=== PATIENT | female | born 1960 | race Two or more races ===

== ENCOUNTER 2016-11-16 13:14 | Inpatient (IN) | payer BC, OTHER ==
[2016-11-16 13:19] VITALS: BMI 29.2
[2016-11-16] MEDS ORDERED: morphine CARPU-JECT 2 MG/1 ML DISP.SYRIN IVPUSH ONE (14:39)
[2016-11-16] MEDS ORDERED: PANTOPRAZOLE SODIUM 40 MG in SODIUM CHLORIDE 100 ML IVPB ONE (14:39)
[2016-11-16 14:52] LABS: URINE APPEARANCE CLEAR; URINE BILIRUBIN NEGATIVE (NEGATIVE); URINE COLOR YELLOW; URINE GLUCOSE (UA) NEGATIVE (NEGATIVE); URINE KETONE NEGATIVE (NEGATIVE); URINE LEUK ESTERASE NEGATIVE (NEGATIVE); URINE NITRITE NEGATIVE (NEGATIVE); URINE PROTEIN NEGATIVE (NEGATIVE); URINE UROBILINOGEN 2.0 E.U/dl E.U./dl (0.2-1.0)
[2016-11-16 14:59] LABS: BASOPHIL 0.5 % (0-2.0); EOSINOPHIL 0.2 % (0-4.5); MCH 32.6 pg (25.7-33.7); MCHC 33.6 g/dl (32.0-36.0); MEAN PLT VOLUME 8.8 fl (7.5-11.1); NEUTROPHILS 84.8 % (42.8-82.8); PLATELET COUNT 161 K/MM3 (134-434); RDW 13.8 % (11.6-15.6); WHITE BLOOD COUNT 6.9 K/mm3 (4.0-10.0)
[2016-11-16 15:03] LABS: INR 1.9 (0.82-1.09); PROTHROMBIN TIME (PATIENT) 21.2 SEC (9.98-11.88)
[2016-11-16 15:03] LABS: URINE BLOOD 1+ (NEGATIVE)
[2016-11-16 15:08] LABS: URINE RBC 3 /hpf (0-3); URINE WBC 1 /hpf (3-5)
[2016-11-16] MEDS ORDERED: PANTOPRAZOLE SODIUM 100 ML IVPB ONE (15:09)
[2016-11-16] MEDS ORDERED: morphine CARPU-JECT 2 MG/1 ML DISP.SYRIN ONE (15:09)
[2016-11-16 15:12] LABS: ALBUMIN 3.7 g/dl (3.4-5.0); ANION GAP 7 (8-16); BILIRUBIN,TOTAL 1.2 mg/dL (0.2-1.0); CALCIUM 8.6 mg/dL (8.5-10.1); CO2 26 mmol/L (21-32); CREATININE 0.8 mg/dL (0.55-1.02); GLUCOSE,RANDOM 102 mg/dL (74-106); SGOT/AST 167 U/L (15-37); SGPT/ALT 90 U/L (12-78); TOT PROT 6.9 g/dl (6.4-8.2)
[2016-11-16 15:13] LABS: ALK PHOS 136 U/L (45-117)
--- NOTE | 2016-11-16 16:06 | PDOC ---
History of Present Illness - General Chief Complaint: Pain, Acute Stated Complaint: ABD PAIN/ VOMITTING Time Seen by Provider: 11/16/16 13:42 History Source: Patient Exam Limitations: No Limitations - History of Present Illness Travel History: No Initial Comments: 11/16/16 15:06 56-year-old female presents to the emergency with complaints of upper abdominal cramping that began this morning associated 1 episode of vomiting. Patient denies fever, chills, chest pain, shortness of breath but does state takes Coumadin for phlebitis patient denies any recent illness, recent travel, recent sick contacts. Patient does state history of constipation with her last bowel movement being 3 days ago but denies abdominal pain to this extent with constipation. Patient denies history of gallstones but the states similar pain and workup approximately 3 years ago. 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 Timing/Duration: reports: constant Quality: reports: moderate, cramping, sharpness Abdominal Pain Onset Location: reports: epigastric Pain Radiation: reports: no radiation Activities at Onset: reports: none Aggravating Factors: improves with: None Alleviating Factors: improves with: None Past History - Past Medical History Allergies/Adverse Reactions: Allergies Allergy/AdvReac Type Severity Reaction Status Date / Time Penicillins Allergy Mild RASH, Verified 11/16/16 13:19 MOUTH SWELLING sulfamethoxazole Allergy Verified 11/16/16 13:19 [From Bactrim] trimethoprim [From Bactrim] Allergy Verified 11/16/16 13:19 Home Medications: Ambulatory Orders Levothyroxine [Synthroid -] 100 mcg PO DAILY #0 02/09/14 Warfarin Na [Coumadin -] 4 mg PO MOTUWETHFR 04/25/16 Atenolol [Tenormin -] 25 mg PO HS 11/16/16 Docusate Sodium [Colace -] 100 mg PO DAILY 11/16/16 Folic Acid - 2 mg PO DAILY 11/16/16 Methotrexate Sodium [Methotrexate] 17.5 mg PO WEEKLY 11/16/16 Omeprazole 40 mg PO DAILY 11/16/16 Warfarin Na [Coumadin] 5 mg PO SUSA 11/16/16 Oxycodone HCl/Acetaminophen [Percocet 5-325 mg Tablet] 1 tab PO Q4H PRN #20 tablet MDD 6 11/19/16 Anemia: No Asthma: No Cancer: No Cardiac Disorders: No CVA: No COPD: No CHF: No DVT: Yes (RECURRING DVT LOWER EXTREMITY) Dementia: No Diabetes: No GI Disorders: Yes (CONSTIPATION) Disorders: No HTN: Yes Hypercholesterolemia: No Liver Disease: No Suicide Attempt (Hx): No Seizures: No Thyroid Disease: Yes (HYPOTHYROID) Other medical history: Lupus, Arthritis - Surgical History Abdominal Surgery: No Appendectomy: No Cardiac Surgery: No Cholecystectomy: No Lung Surgery: No Neurologic Surgery: No Orthopedic Surgery: No - Immunization History Immunization Up to Date: No - Psycho/Social/Smoking Cessation Hx Anxiety: Yes Suicidal Ideation: No Smoking History: Never smoked Have you smoked in the past 12 months: No Number of Cigarettes Smoked Daily: 0 If you are a former smoker, when did you quit?: 15YRS AGO Cigars Per Day: 0 Information on smoking cessation initiated: No Hx Alcohol Use: No Drug/Substance Use Hx: No Substance Use Type: None Hx Substance Use Treatment: No Patient Lives Alone: No Lives with/in: spouse/SO Review of Systems - Review of Systems Able to Perform ROS?: Yes Constitutional: No: Symptoms Reported HEENTM: No: Symptoms Reported Respiratory: No: Symptoms reported Cardiac (ROS): No: Symptoms Reported ABD/GI: Yes: Constipated (3 days), Nausea, Vomiting, Abdominal cramping ( epigastric) : No: Symptoms Reported Musculoskeletal: No: Symptoms Reported Integumentary: No: Symptoms Reported Neurological: No: Symptoms reported Endocrine: No: Symptoms Reported Hematologic/Lymphatic: No: Symptoms Reported *Physical Exam - Vital Signs Last Vital Signs Temp Pulse Resp BP Pulse Ox 97.9 F 58 L 18 139/82 98 11/16/16 13:18 11/16/16 13:18 11/16/16 14:27 11/16/16 13:18 11/16/16 14:27 - Physical Exam General Appearance: Yes: Nourished, Appropriately Dressed. No: Apparent Distress HEENT: positive: EOMI, ABHILASH. negative: Pale Conjunctivae Neck: positive: Supple Respiratory/Chest: positive: Lungs Clear, Normal Breath Sounds. negative: Respiratory Distress, Accessory Muscle Use Cardiovascular: positive: Regular Rhythm, Regular Rate. negative: Murmur Gastrointestinal/Abdominal: positive: Normal Bowel Sounds, Soft, Guarding ( epigastric), Tenderness (epigastric, No RUQ tenderness). negative: Distended, Rebound Musculoskeletal: negative: CVA Tenderness Extremity: positive: Normal Capillary Refill. negative: Pedal Edema Integumentary: positive: Normal Color, Warm, Moist Neurologic: positive: Motor Strength 5/5 (ambulatory) Heart Score/ECG Review - ECG Intrepretation Rhythm: Regular Rhythm (rate 54 sinus bradycardia) ED Treatment Course - LABORATORY CBC & Chemistry Diagram: 11/19/16 06:30 11/19/16 06:30 - ADDITIONAL ORDERS Additional order review: Laboratory Results 11/16/16 11/16/16 11/16/16 14:44 14:28 14:28 INR 1.90 H Sodium 142 Potassium 3.9 Chloride 109 H Carbon Dioxide 26 Anion Gap 7 L BUN 12 Creatinine 0.8 Creat Clearance w eGFR > 60 Random Glucose 102 Calcium 8.6 Total Bilirubin 1.2 H D AST 167 H D ALT 90 H D Alkaline Phosphatase 136 H D Total Protein 6.9 Albumin 3.7 Lipase 86318 H Urine Color Yellow Urine Appearance Clear Urine pH 6.0 Ur Specific [place] 1.015 Urine Protein Negative Urine Glucose (UA) Negative Urine Ketones Negative Urine Blood 1+ H Urine Nitrite Negative Urine Bilirubin Negative Urine Urobilinogen 2.0 e.u/dl H Ur Leukocyte Esterase Negative Urine RBC 3 Urine WBC 1 Ur Epithelial Cells Rare 11/16/16 14:28 RBC 4.34 MCV 97.0 H MCHC 33.6 RDW 13.8 MPV 8.8 Neutrophils % 84.8 H Lymphocytes % 9.7 Monocytes % 4.8 Eosinophils % 0.2 Basophils % 0.5 - RADIOLOGY Radiology Studies Ordered: Category Date Time Status ABDOMEN & PELVIS CT WITH CONTR [CT] Stat CT Scan 11/16/16 15:57 Ordered - Medications Given in the ED: ED Medications Discontinued Medications Generic Name Dose Route Start Last Admin Trade Name Freq PRN Reason Stop Dose Admin Pantoprazole Sodium 40 mg/ 100 mls @ 200 mls/hr 11/16/16 14:39 11/16/16 15:20 Sodium Chloride IVPB 11/16/16 15:08 200 mls/hr ONCE ONE Administration Morphine Sulfate 2 mg 11/16/16 14:39 11/16/16 15:15 Morphine Injection - IVPUSH 11/16/16 14:40 2 mg ONCE ONE Administration Medical Decision Making - Critical Care Time Total Critical Care Time (minutes): 40 Critical Care Statement: The care of this patient involved high complexity decision making to prevent further life threatening deterioration of the patient 's condition and/or to evalute & treat vital organ system(s) failure or risk of failure. - Medical Decision Making 11/16/16 15:25 Patient with abdominal pain associated 1 episode of vomiting secondary to the pain. Patient states also constipated for the past 3 days but states has been constipated before normal without abdominal pain. Patient states it's had similar pain like this before and received a hydroscan with negative findings but did get admitted for a few days. [place]' back in 2013. Patient does have epigastric tenderness on exam without right upper quadrant tenderness. Patient concerning for gastritis versus cholecystitis versus pancreatitis. CBC, comp, urine, lipase, EKG, Pepcid, Zofran and IV fluids ordered 11/16/16 16:39 Laboratory Tests 11/16/16 11/16/16 11/16/16 14:28 14:28 14:28 WBC 6.9 D Hgb 14.2 Hct 42.2 Neutrophils % 84.8 H INR Sodium 142 Potassium 3.9 Chloride 109 H Carbon Dioxide 26 Anion Gap 7 L BUN 12 Creatinine 0.8 Creat Clearance w eGFR > 60 Random Glucose 102 Calcium 8.6 Total Bilirubin 1.2 H D AST 167 H D ALT 90 H D Alkaline Phosphatase 136 H D Lipase 99851 H Urine Ketones Negative Urine Blood 1+ H Urine Nitrite Negative Urine Bilirubin Negative Ur Leukocyte Esterase Negative Urine WBC 1 11/16/16 14:44 WBC Hgb Hct Neutrophils % INR 1.90 H Sodium Potassium Chloride Carbon Dioxide Anion Gap BUN Creatinine Creat Clearance w eGFR Random Glucose Calcium Total Bilirubin AST ALT Alkaline Phosphatase Lipase Urine Ketones Urine Blood Urine Nitrite Urine Bilirubin Ur Leukocyte Esterase Urine WBC Total amylase ordered. Second bag of IV fluid ordered. CT of the abdomen with contrast ordered. Patient presently comfortable. the patient also subtherapeutic on her Coumadin *DC/Admit/Observation/Transfer Diagnosis at time of Disposition: Pancreatitis, Cholelithiases - Discharge Dispostion Condition at time of disposition: Stable - Prescriptions
[2016-11-16] MEDS ORDERED: SODIUM CHLORIDE 1,000 ML IV STA ×2 (16:38)
--- NOTE | 2016-11-16 17:21 | PDOC ---
*Physical Exam - Vital Signs Last Vital Signs Temp Pulse Resp BP Pulse Ox 97.9 F 58 L 18 139/82 98 11/16/16 13:18 11/16/16 13:18 11/16/16 14:27 11/16/16 13:18 11/16/16 14:27 ED Treatment Course - LABORATORY CBC & Chemistry Diagram: 11/19/16 06:30 11/19/16 06:30 - ADDITIONAL ORDERS Additional order review: Laboratory Results 11/16/16 11/16/16 11/16/16 14:44 14:28 14:28 INR 1.90 H Sodium 142 Potassium 3.9 Chloride 109 H Carbon Dioxide 26 Anion Gap 7 L BUN 12 Creatinine 0.8 Creat Clearance w eGFR > 60 Random Glucose 102 Calcium 8.6 Total Bilirubin 1.2 H D AST 167 H D ALT 90 H D Alkaline Phosphatase 136 H D Total Protein 6.9 Albumin 3.7 Lipase 91750 H Urine Color Yellow Urine Appearance Clear Urine pH 6.0 Ur Specific [place] 1.015 Urine Protein Negative Urine Glucose (UA) Negative Urine Ketones Negative Urine Blood 1+ H Urine Nitrite Negative Urine Bilirubin Negative Urine Urobilinogen 2.0 e.u/dl H Ur Leukocyte Esterase Negative Urine RBC 3 Urine WBC 1 Ur Epithelial Cells Rare 11/16/16 14:28 RBC 4.34 MCV 97.0 H MCHC 33.6 RDW 13.8 MPV 8.8 Neutrophils % 84.8 H Lymphocytes % 9.7 Monocytes % 4.8 Eosinophils % 0.2 Basophils % 0.5 - RADIOLOGY Radiology Studies Ordered: Category Date Time Status CHEST X-RAY PORTABLE* [RAD] Stat Radiology 11/16/16 14:28 Completed - Medications Given in the ED: ED Medications Discontinued Medications Generic Name Dose Route Start Last Admin Trade Name Freq PRN Reason Stop Dose Admin Pantoprazole Sodium 40 mg/ 100 mls @ 200 mls/hr 11/16/16 14:39 11/16/16 15:20 Sodium Chloride IVPB 11/16/16 15:08 200 mls/hr ONCE ONE Administration Morphine Sulfate 2 mg 11/16/16 14:39 11/16/16 15:15 Morphine Injection - IVPUSH 11/16/16 14:40 2 mg ONCE ONE Administration Medical Decision Making - Medical Decision Making 11/16/16 17:17 56 yo F presenting with abdominal pain Labs demonstrate pancreatitis Hydrate with LR Admit CT vs US Close monitoring Pt seen by Midlevel Provider under my direct supervision Ancillary studies reviewed I agree with plan as outlined by Midlevel Provider 11/16/16 17:20 *DC/Admit/Observation/Transfer Diagnosis at time of Disposition: Pancreatitis, Cholelithiases - Discharge Dispostion Condition at time of disposition: Stable - Prescriptions
[2016-11-16 18:26] LABS: AMYLASE 3659 U/L (25-115)
--- NOTE | 2016-11-16 20:27 | PDOC ---
*Physical Exam - Vital Signs Last Vital Signs Temp Pulse Resp BP Pulse Ox 97.9 F 63 16 131/85 98 11/16/16 13:18 11/16/16 19:08 11/16/16 19:08 11/16/16 19:08 11/16/16 19:08 ED Treatment Course - LABORATORY CBC & Chemistry Diagram: 11/16/16 14:28 11/16/16 14:28 - ADDITIONAL ORDERS Additional order review: Laboratory Results 11/16/16 11/16/16 11/16/16 14:44 14:28 14:28 INR 1.90 H Sodium 142 Potassium 3.9 Chloride 109 H Carbon Dioxide 26 Anion Gap 7 L BUN 12 Creatinine 0.8 Creat Clearance w eGFR > 60 Random Glucose 102 Calcium 8.6 Total Bilirubin 1.2 H D AST 167 H D ALT 90 H D Alkaline Phosphatase 136 H D Total Protein 6.9 Albumin 3.7 Total Amylase 3659 H Lipase 87524 H Urine Color Yellow Urine Appearance Clear Urine pH 6.0 Ur Specific [place] 1.015 Urine Protein Negative Urine Glucose (UA) Negative Urine Ketones Negative Urine Blood 1+ H Urine Nitrite Negative Urine Bilirubin Negative Urine Urobilinogen 2.0 e.u/dl H Ur Leukocyte Esterase Negative Urine RBC 3 Urine WBC 1 Ur Epithelial Cells Rare 11/16/16 14:28 RBC 4.34 MCV 97.0 H MCHC 33.6 RDW 13.8 MPV 8.8 Neutrophils % 84.8 H Lymphocytes % 9.7 Monocytes % 4.8 Eosinophils % 0.2 Basophils % 0.5 - Medications Given in the ED: ED Medications Discontinued Medications Generic Name Dose Route Start Last Admin Trade Name Arthur PRN Reason Stop Dose Admin Pantoprazole Sodium 40 mg/ 100 mls @ 200 mls/hr 11/16/16 14:39 11/16/16 15:20 Sodium Chloride IVPB 11/16/16 15:08 200 mls/hr ONCE ONE Administration Sodium Chloride 1,000 mls @ 1,000 mls/hr 11/16/16 16:38 11/16/16 16:46 Normal Saline - IV 11/16/16 17:37 1,000 mls/hr ASDIR STA Administration Sodium Chloride 1,000 mls @ 1,000 mls/hr 11/16/16 16:38 11/16/16 18:52 Normal Saline - IV 11/16/16 17:37 1,000 mls/hr ASDIR STA Administration Morphine Sulfate 2 mg 11/16/16 14:39 11/16/16 15:15 Morphine Injection - IVPUSH 11/16/16 14:40 2 mg ONCE ONE Administration *DC/Admit/Observation/Transfer Diagnosis at time of Disposition: Pancreatitis Qualifiers: Chronicity: acute Pancreatitis type: unspecified pancreatitis type Qualified Code(s): K85.9 - Acute pancreatitis, unspecified Cholelithiasis Qualifiers: Cholelithiasis location: gallbladder Cholecystitis presence: without cholecystitis Biliary obstruction: without biliary obstruction Qualified Code(s) : K80.20 - Calculus of gallbladder without cholecystitis without obstruction - Discharge Dispostion Condition at time of disposition: Guarded Admit: Yes
--- NOTE | 2016-11-16 21:33 | PN ---
<DouglasCorby - Last Filed: 11/16/16 21:32> Teaching Attending Note ATTENDING PHYSICIAN STATEMENT I saw and evaluated the patient. I reviewed the resident's note and discussed the case with the resident. I agree with the resident's findings and plan as documented. SUBJECTIVE: OBJECTIVE: ASSESSMENT AND PLAN: <Hilton Rosales - Last Filed: 11/17/16 00:15> Teaching Attending Note Name of Resident: Alessandra Hdez ATTENDING PHYSICIAN STATEMENT I saw and evaluated the patient. I reviewed the resident's note and discussed the case with the resident. I agree with the resident's findings and plan as documented. 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 Presents to the ED with diffuse abdominal pain for 2 days, which worsened 1 day ago, and one episode of emesis. She notes that her abdominal pain is more severe in the right upper quadrant and radiates to the back. She denies any exacerbation of her pain with food. She notes that she was diagnosed with gallstones and pancreatitis a couple of years ago but no surgical intervention performed at that time. She denies any trauma to her abdomen, denies any fevers, cough, dysuria or diarrhea. OBJECTIVE: Vitals: Afebrile Heart rate: 63 bpm BP: 131/85 GENERAL: Awake, alert, and fully oriented, in no acute distress HEENT: Atraumatic. Moist mucosa. No JVD LUNGS: Clear to auscultation bilaterally. HEART: Regular rate and rhythm, normal S1 and S2, no murmurs, rubs or gallops, peripheral pulses normal and equal bilaterally. ABDOMEN: +Tender right upper quadrant and epigastric tenderness. Soft, normoactive bowel sounds. No masses. EXTREMITIES: No edema. No clubbing or cyanosis. NEUROLOGICAL: Normal speech. SKIN: Warm, Dry, normal turgor, no rashes or lesions noted. CBCD WBC 6.9 K/mm3 (4.0-10.0) D 11/16/16 14:28 RBC 4.34 M/mm3 (3.60-5.2) 11/16/16 14:28 Hgb 14.2 GM/dL (10.7-15.3) 11/16/16 14:28 Hct 42.2 % (32.4-45.2) 11/16/16 14:28 MCV 97.0 fl (80-96) H 11/16/16 14:28 MCHC 33.6 g/dl (32.0-36.0) 11/16/16 14:28 RDW 13.8 % (11.6-15.6) 11/16/16 14:28 Plt Count 161 K/MM3 (134-434) 11/16/16 14:28 MPV 8.8 fl (7.5-11.1) 11/16/16 14:28 CMP Sodium 142 mmol/L (136-145) 11/16/16 14:28 Potassium 3.9 mmol/L (3.5-5.1) 11/16/16 14:28 Chloride 109 mmol/L (98-107) H 11/16/16 14:28 Carbon Dioxide 26 mmol/L (21-32) 11/16/16 14:28 Anion Gap 7 (8-16) L 11/16/16 14:28 BUN 12 mg/dL (7-18) 11/16/16 14:28 Creatinine 0.8 mg/dL (0.55-1.02) 11/16/16 14:28 Creat Clearance w eGFR > 60 (>60) 11/16/16 14:28 Calcium 8.6 mg/dL (8.5-10.1) 11/16/16 14:28 Total Bilirubin 1.2 mg/dL (0.2-1.0) H D 11/16/16 14:28 AST 167 U/L (15-37) H D 11/16/16 14:28 ALT 90 U/L (12-78) H D 11/16/16 14:28 Alkaline Phosphatase 136 U/L (45-117) H D 11/16/16 14:28 Total Protein 6.9 g/dl (6.4-8.2) 11/16/16 14:28 Albumin 3.7 g/dl (3.4-5.0) 11/16/16 14:28 CT abdomen and pelvis with contrast Impression: 5 mm right lower lobe nodule. 2 mm left lower lobe nodule. No pleural effusions. * Moderate peripancreatic edema, compatible with pancreatitis. No evidence for abscess or drainable fluid collections at this time. Cholelithiasis. The liver, adrenal glands, and spleen are unremarkable. Bilateral renal cortical scarring. No renal or urinary calculi. No AAA. No evidence of diverticulitis, appendicitis, small bowel obstruction, free fluid , or free air. 1.6 cm right ovarian cyst. ASSESSMENT AND PLAN: Acute pancreatitis, likely secondary to gallstones as evidence by cholestatic pattern of LFTs, should rule out ethanol abuse and hypertriglyceridemia. -NPO -IVF hydration -Liver ultrasound -Pain control with Dilaudid 0.5 mg Q4 hours if pain -Surgery for possible cholecystectomy in the AM -GI evaluation for MRCP in the AM DVT prophylaxis, patient on coumadin for prior history of DVTs, can continue same home dose of coumadin 2. Rheumatoid arthritis, controlled - Continue methotrexate 3. Hypothyroidism - Continue levothyroxine Documentation prepared by Hilton Rosales, acting as medical receptionist medical assistant for Corby Cole MD.
--- NOTE | 2016-11-16 22:23 | HP ---
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 She states that 3 days ago she started having mild-moderate, diffuse abdominal pain that occurred intermittently and resolved spontaneously. Last night she had a more severe episode but it too resolved and she slept through the night until this morning, she awoke with 10/10 sharp diffuse abdominal pain, more severe in LUQ, radiating to back. She had one episode of bilious vomiting because of the pain. Her last BM was 3 days ago and was normal, not gian colored, nonmelenous, w/o blood. She states that she had a similar episode of abd pain 2 years ago, for which she was seen in this hospital. At that time, per EMR, she was evaluated in Ed with ultrasound as well as CT scan, identified to have cholelithiasis and some suggestion of pancreatitis, however, patient was well appearing and the lipase correlation was absent. She was not admitted at that time. She currently denies f/c, chest pain, sob, cough, n/v, diarrhea. She is feeling better after being given analgesic medication tolerating regular diet in ED. ER course was notable for: (1) labs (2) abd CT, cxr (3) morphine, ppi, NS IVF Recent Travel: denies PAST MEDICAL HISTORY: as above PAST SURGICAL HISTORY: no abd surgery Social History: lives with Smoking: denies Alcohol: denies Drugs: denies Family History: CAD, HTN Allergies Penicillins Allergy (Mild, Verified 11/16/16 13:19) RASH, MOUTH SWELLING sulfamethoxazole [From Bactrim] Allergy (Verified 11/16/16 13:19) trimethoprim [From Bactrim] Allergy (Verified 11/16/16 13:19) HOME MEDICATIONS: Medication Instructions Recorded Levothyroxine [Synthroid -] 100 mcg PO DAILY #0 02/09/14 Warfarin Na [Coumadin -] 4 mg PO MOTUWETHFR 04/25/16 Atenolol [Tenormin -] 25 mg PO HS 11/16/16 Docusate Sodium [Colace -] 100 mg PO DAILY 11/16/16 Folic Acid - 2 mg PO DAILY 11/16/16 Methotrexate Sodium [Methotrexate] 17.5 mg PO WEEKLY 11/16/16 Omeprazole 40 mg PO DAILY 11/16/16 Warfarin Na [Coumadin] 5 mg PO SUSA 11/16/16 REVIEW OF SYSTEMS CONSTITUTIONAL: Absent: fever, chills, diaphoresis, malaise HEENT: Absent: difficulty swallowing, visual changes CARDIOVASCULAR: Absent: chest pain, syncope, palpitations, lightheadedness, peripheral edema RESPIRATORY: Absent: cough, shortness of breath, orthopnea, wheezing GASTROINTESTINAL: Absent: nausea, vomiting, diarrhea, melena, hematochezia GENITOURINARY: Absent: dysuria MUSCULOSKELETAL: Absent: myalgia, arthralgia SKIN: Absent: rash HEMATOLOGIC/IMMUNOLOGIC: Absent: easy bleeding, easy bruising, frequent infections ENDOCRINE: Absent: unexplained weight gain, unexplained weight loss, heat or cold intolerance NEUROLOGIC: Absent: headache, focal weakness or paresthesias, seizure PSYCHIATRIC: Absent:depression PHYSICAL EXAMINATION Vital Signs - 24 hr 11/16/16 11/16/16 11/16/16 13:18 14:24 14:27 Temperature 97.9 F Pulse Rate 58 L Pulse Rate [ Apical] Respiratory 18 18 Rate Blood Pressure 139/82 Blood Pressure [Left Arm] O2 Sat by Pulse 99 98 98 Oximetry (%) 11/16/16 19:08 Temperature Pulse Rate Pulse Rate [ 63 Apical] Respiratory 16 Rate Blood Pressure Blood Pressure 131/85 [Left Arm] O2 Sat by Pulse 98 Oximetry (%) GENERAL: Awake, alert, and fully oriented, in no acute distress. HEAD: Normal with no signs of trauma. EYES: Pupils equal, round and reactive to light, extraocular movements intact, sclera anicteric, conjunctiva clear. EARS, NOSE, THROAT: Moist mucous membranes. NECK: supple without JVD LUNGS: Breath sounds equal, clear to auscultation bilaterally. HEART: Regular rate and rhythm, normal S1 and S2 ABDOMEN: Soft, diffusely tender LUQ>RUQ , not distended, globally reduced bowel sounds, no guarding MUSCULOSKELETAL: No CVA tenderness. UPPER EXTREMITIES: 2+ pulses, warm, well-perfused. No peripheral edema. LOWER EXTREMITIES: 2+ pulses, warm, well-perfused. No calf tenderness. No peripheral edema. NEUROLOGICAL: Cranial nerves II-XII grossly intact. Normal speech. PSYCHIATRIC: Cooperative. Good eye contact. Appropriate mood and affect. SKIN: Warm, dry Laboratory Results - last 24 hr 11/16/16 11/16/16 11/16/16 14:28 14:28 14:28 WBC 6.9 D RBC 4.34 Hgb 14.2 Hct 42.2 MCV 97.0 H MCHC 33.6 RDW 13.8 Plt Count 161 MPV 8.8 Neutrophils % 84.8 H Lymphocytes % 9.7 Monocytes % 4.8 Eosinophils % 0.2 Basophils % 0.5 INR Sodium 142 Potassium 3.9 Chloride 109 H Carbon Dioxide 26 Anion Gap 7 L BUN 12 Creatinine 0.8 Creat Clearance w eGFR > 60 Random Glucose 102 Calcium 8.6 Total Bilirubin 1.2 H D AST 167 H D ALT 90 H D Alkaline Phosphatase 136 H D Total Protein 6.9 Albumin 3.7 Total Amylase 3659 H Lipase 31563 H Urine Color Yellow Urine Appearance Clear Urine pH 6.0 Ur Specific [place] 1.015 Urine Protein Negative Urine Glucose (UA) Negative Urine Ketones Negative Urine Blood 1+ H Urine Nitrite Negative Urine Bilirubin Negative Urine Urobilinogen 2.0 e.u/dl H Ur Leukocyte Esterase Negative Urine RBC 3 Urine WBC 1 Ur Epithelial Cells Rare 11/16/16 14:44 WBC RBC Hgb Hct MCV MCHC RDW Plt Count MPV Neutrophils % Lymphocytes % Monocytes % Eosinophils % Basophils % INR 1.90 H Sodium Potassium Chloride Carbon Dioxide Anion Gap BUN Creatinine Creat Clearance w eGFR Random Glucose Calcium Total Bilirubin AST ALT Alkaline Phosphatase Total Protein Albumin Total Amylase Lipase Urine Color Urine Appearance Urine pH Ur Specific [place] Urine Protein Urine Glucose (UA) Urine Ketones Urine Blood Urine Nitrite Urine Bilirubin Urine Urobilinogen Ur Leukocyte Esterase Urine RBC Urine WBC Ur Epithelial Cells ASSESSMENT/PLAN: This is a 56 yo F with PMH of lupus and RA on methotrexate, HTN, hypothyroidism and 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 CXR unremarkable Abd CT: pancreatitis, no evidence of abscess Acute pancreatitis in setting of cholelithiasis -Admission [facility] =1; LDH pending, Max Admission [facility] =2 -mild pancreatitis, mortality 0-1% -likely due to gall stone in CBD -r/o secondary causes; blood alcohol, Utox, lipid panel -NPO after midnight p/d procedure -surgery, GI on case -Dilaudid pain management -IV Hydration -no evidence of infectious process, abx not indicated Hypothyroid -Synthroid HTN -atenolol recurrent DVT -hold a/c pending invasive procedures tomorrow lupus -weekly methotrexate RA -weekly methotrexate Constipation -hold colace Macrocytic anemia -folic acid FEN Ringers @ 125 Lytes stable DVT GI PPX: SCD's, hold a/c p/d invasive procedures tomorrow, PPI NPO after midnight Dispo: admit to [facility] Problem List - Problem (1) Pancreatitis Code(s): K85.9 - ACUTE PANCREATITIS, UNSPECIFIED * DO NOT USE * Qualifiers: Chronicity: acute Pancreatitis type: unspecified pancreatitis type Qualified Code(s): K85.9 - Acute pancreatitis, unspecified (2) Cholelithiasis Code(s): K80.20 - CALCULUS OF GALLBLADDER W/O CHOLECYSTITIS W/O OBSTRUCTION (3) Acute pancreatitis Code(s): K85.9 - ACUTE PANCREATITIS, UNSPECIFIED * DO NOT USE * (4) HTN (hypertension) Code(s): I10 - ESSENTIAL (PRIMARY) HYPERTENSION (5) Hypothyroid Code(s): E03.9 - HYPOTHYROIDISM, UNSPECIFIED (6) Lupus (systemic lupus erythematosus) Code(s): M32.9 - SYSTEMIC LUPUS ERYTHEMATOSUS, UNSPECIFIED (7) Rheumatoid arthritis Code(s): M06.9 - RHEUMATOID ARTHRITIS, UNSPECIFIED (8) Recurrent deep vein thrombosis (DVT) Code(s): I82.409 - ACUTE EMBOLISM AND THOMBOS UNSP DEEP VN UNSP LOWER EXTREMITY Visit type - Emergency Visit Emergency Visit: Yes ED Registration Date: 11/16/16 Care time: The patient presented to the Emergency Department on the above date and was hospitalized for further evaluation of their emergent condition. - New Patient This patient is new to me today: Yes Date on this admission: 11/17/16 - Critical Care Critical Care patient: No
[2016-11-16] MEDS ORDERED: HYDROmorphone HCL CARPU-JECT 1 MG/1 ML DISP.SYRIN IVPUSH PRN (23:29)
--- NOTE | 2016-11-16 23:41 | EKG ---
Test Reason : Blood Pressure : / mmHG Vent. Rate : 054 BPM Atrial Rate : 054 BPM P-R Int : 156 ms QRS Dur : 084 ms QT Int : 424 ms P-R-T Axes : 012 040 037 degrees QTc Int : 402 ms SINUS BRADYCARDIA OTHERWISE NORMAL ECG WHEN COMPARED WITH ECG OF 09-FEB-2014 12:07, NO SIGNIFICANT CHANGE WAS FOUND Confirmed by ADALBERTO IBARRA MD ([id number]) on 11/16/2016 11:40:28 PM Referred By: Confirmed By:ADALBERTO IBARRA MD
[2016-11-17] MEDS: LACTATED RINGERS SOLUTION 1,000 ML IV SCH ×3 (00:55→23:34)
[2016-11-17 03:08] LABS: CHOLESTEROL 161 mg/dL (50-200); LDL CHOLESTEROL (ONLY SJRH) 92 mg/dL (5-100)
[2016-11-17 07:38] LABS: MCH 33.1 pg (25.7-33.7); MCHC 34.1 g/dl (32.0-36.0); MEAN CELL VOLUME 97.1 fl (80-96); MEAN PLT VOLUME 9.2 fl (7.5-11.1); PLATELET COUNT 138 K/MM3 (134-434); RDW 13.6 % (11.6-15.6); WHITE BLOOD COUNT 4.5 K/mm3 (4.0-10.0)
[2016-11-17 07:55] LABS: ALBUMIN 2.9 g/dl (3.4-5.0); AMYLASE 614 U/L (25-115); ANION GAP 4 (8-16); CALCIUM 7.9 mg/dL (8.5-10.1); CO2 25 mmol/L (21-32); CREATININE 0.7 mg/dL (0.55-1.02); GLUCOSE,RANDOM 80 mg/dL (74-106); MAGNESIUM 2.1 mg/dL (1.8-2.4); SGOT/AST 80 U/L (15-37); SGPT/ALT 96 U/L (12-78); TOT PROT 5.4 g/dl (6.4-8.2)
[2016-11-17 07:59] LABS: ALK PHOS 106 U/L (45-117); BILIRUBIN,TOTAL 0.6 mg/dL (0.2-1.0); PHOSPHOROUS 2.8 mg/dL (2.5-4.9)
--- NOTE | 2016-11-17 10:37 | CONSULT ---
Consult Consult Specialty:: surgery Reason for Consultation:: gallstone pancreatitis - History of Present Illness Chief Complaint: epigastric pain History of Present Illness: pt is a 56F with 3 day hx of epigastric pain. it got worse yesterday and she came to ER where workup reveals elevated amylase/lipase and CT showing pancreatitis. U/S shows gallstones. bilirubin normal. pain today is better but still present. labs improved. hx of 3-4 DVT on lifetime anticoag therapy. hx of RA on mtx and steroid x 6 days in october - History Source History Provided By: Patient Limitations to Obtaining History: No Limitations - Past Medical History ...LMP: 05/14/12 - Alcohol/Substance Use Hx Alcohol Use: No - Smoking History Smoking history: Never smoked Have you smoked in the past 12 months: No Aproximately how many cigarettes per day: 0 If you are a former smoker, when did you quit?: 15YRS AGO Home Medications - Allergies Allergies/Adverse Reactions: Allergies Allergy/AdvReac Type Severity Reaction Status Date / Time Penicillins Allergy Mild RASH, Verified 11/16/16 13:19 MOUTH SWELLING sulfamethoxazole Allergy Verified 11/16/16 13:19 [From Bactrim] trimethoprim [From Bactrim] Allergy Verified 11/16/16 13:19 - Home Medications Home Medications: Ambulatory Orders Levothyroxine [Synthroid -] 100 mcg PO DAILY #0 02/09/14 Warfarin Na [Coumadin -] 4 mg PO MOTUWETHFR 04/25/16 Atenolol [Tenormin -] 25 mg PO HS 11/16/16 Docusate Sodium [Colace -] 100 mg PO DAILY 11/16/16 Folic Acid - 2 mg PO DAILY 11/16/16 Methotrexate Sodium [Methotrexate] 17.5 mg PO WEEKLY 11/16/16 Omeprazole 40 mg PO DAILY 11/16/16 Warfarin Na [Coumadin] 5 mg PO SUSA 11/16/16 Review of Systems - Review of Systems Constitutional: denies: Chills, Fever Eyes: denies: Blind Spots, Blurred Vision HENT: denies: Difficult Swallowing, Ear Discharge Neck: denies: Decreased ROM, Lumps Cardiovascular: denies: Chest Pain, Edema Respiratory: denies: Cough, Exercise Intolerance Gastrointestinal: reports: Abdominal Pain Genitourinary: denies: Discharge, Lesions Breasts: denies: Breast Implants, Skin Changes Musculoskeletal: denies: Crepitus, Decreased ROM Integumentary: denies: Blister, Bruising Neurological: denies: Change in LOC, Change in Speech Endocrine: denies: Excessive Sweating, Flushing Hematology/Lymphatic: denies: Easily Bruised, Excessive Bleeding Psychiatric: denies: Altered Sleep Pattern, Anxiety Physical Exam Vital Signs: Vital Signs Temperature 97.9 F 11/16/16 13:18 Pulse Rate 69 11/17/16 02:06 Respiratory Rate 18 11/17/16 02:06 Blood Pressure 108/69 11/17/16 02:06 O2 Sat by Pulse Oximetry (%) 98 11/16/16 19:08 Constitutional: Yes: No Distress, Calm Eyes: Yes: Conjunctiva Clear, EOM Intact HENT: Yes: Atraumatic, Normocephalic Neck: Yes: Trachea Midline Cardiovascular: Yes: Regular Rate and Rhythm Respiratory: Yes: Regular Gastrointestinal: Yes: Soft, Tenderness, Epigastrium. No: Distention ...Rectal Exam: Yes: Deferred Renal/: No: CVA Tenderness - Left, CVA Tenderness - Right Breast(s): No: Breast Implants, Dimpling Musculoskeletal: No: Joint Stiffness, Joint Swelling Extremities: No: Calf Tenderness, Erythema Integumentary: No: Erythema, Rash Neurological: Yes: Alert, Oriented Psychiatric: Yes: Alert, Oriented Labs: CBC, BMP 11/17/16 06:00 11/17/16 06:00 Imaging - Results Cat Scan: Other (await formal reading) Ultrasound: Report Reviewed Problem List - Problems (1) Acute pancreatitis Code(s): K85.9 - ACUTE PANCREATITIS, UNSPECIFIED * DO NOT USE * (2) HTN (hypertension) Code(s): I10 - ESSENTIAL (PRIMARY) HYPERTENSION (3) Hypothyroid Code(s): E03.9 - HYPOTHYROIDISM, UNSPECIFIED (4) Lupus (systemic lupus erythematosus) Code(s): M32.9 - SYSTEMIC LUPUS ERYTHEMATOSUS, UNSPECIFIED (5) Recurrent deep vein thrombosis (DVT) Code(s): I82.409 - ACUTE EMBOLISM AND THOMBOS UNSP DEEP VN UNSP LOWER EXTREMITY (6) Rheumatoid arthritis Code(s): M06.9 - RHEUMATOID ARTHRITIS, UNSPECIFIED (7) Cholelithiasis Assessment/Plan: gallstone pancreatitis cont NPO IVF hydration once her abd pain is gone or minimal can start clear liquid diet. i anticipate maybe tomorrow for liquids? once pain gone will also schedule her for lap sukhi during this admission. no evidence of choledcoholithiasis as U/S didnt show dilated CBD and bilirubin normal okay from my standpoint to use lovenox for full anticoagulation. will hold prior to surgery. Code(s): K80.20 - CALCULUS OF GALLBLADDER W/O CHOLECYSTITIS W/O OBSTRUCTION
[2016-11-17] MEDS ORDERED: FOLIC ACID 1 MG TABLET (FP) ONE (11:00)
[2016-11-17] MEDS ORDERED: LEVOTHYROXINE NA 25 MCG TABLET (FP) ONE (11:00)
[2016-11-17] MEDS ORDERED: PANTOPRAZOLE 40 MG TABLET (FP) ONE (11:00)
[2016-11-17] MEDS: PANTOPRAZOLE 20 MG TABLET (FP) PO SCH (11:06)
[2016-11-17] MEDS: FOLIC ACID 1 MG TABLET (FP) PO SCH (11:06)
[2016-11-17] MEDS: LEVOTHYROXINE NA 100 MCG TABLET (FP) PO SCH (11:06)
--- NOTE | 2016-11-17 13:42 | PN ---
Progress Note, Physician - Current Medication List Current Medications: Active Medications Atenolol (Tenormin -) 25 mg PO [facility] Folic Acid (Folic Acid -) 2 mg PO DAILY [facility] Last Admin: 11/17/16 11:06 Dose: 2 mg Hydromorphone HCl (Dilaudid Injection -) 1 mg IVPUSH Q4H PRN PRN Reason: PAIN Lactated Ringer's (Lactated Ringers Solution) 1,000 mls @ 125 mls/hr IV ASDIR [facility] Last Admin: 11/17/16 00:55 Dose: 125 mls/hr Levothyroxine Sodium (Synthroid -) 100 mcg PO AM [facility] Last Admin: 11/17/16 11:06 Dose: 100 mcg Pantoprazole Sodium (Protonix -) 20 mg PO DAILY [facility] Last Admin: 11/17/16 11:06 Dose: 20 mg - Objective Vital Signs: Vital Signs Temperature 98.7 F 11/17/16 10:58 Pulse Rate 61 11/17/16 10:58 Respiratory Rate 18 11/17/16 10:58 Blood Pressure 102/58 11/17/16 10:58 O2 Sat by Pulse Oximetry (%) 98 11/17/16 11:08 Constitutional: Yes: Well Nourished, No Distress, Calm Eyes: Yes: WNL, Conjunctiva Clear HENT: Yes: WNL, Atraumatic, Normocephalic Neck: Yes: WNL, Supple, Trachea Midline Cardiovascular: Yes: WNL, Regular Rate and Rhythm Respiratory: Yes: WNL, Regular, CTA Bilaterally Gastrointestinal: Yes: Normal Bowel Sounds, Soft, Tenderness, Epigastrium (mild) Musculoskeletal: Yes: WNL Extremities: Yes: WNL Edema: No Integumentary: Yes: WNL Neurological: Yes: WNL, Alert, Oriented ...Motor Strength: WNL Psychiatric: Yes: WNL Labs: CBC, BMP 11/17/16 06:00 11/17/16 06:00 INR, PTT INR 1.90 (0.82-1.09) H 11/16/16 14:44 Impression/Plan Impression/Plan: 56 yo F with PMH of lupus and RA on methotrexate, HTN, hypothyroidism and 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 admitted for gall stone pancreatitits gall stone pancreatitits -LFT's and lipase trending down -likely passed stone -gall bladder has numerous stones and pt has had episodes in the past -agree with Surgery attending that pt should undergo lap sukhi -cont IVF -start clear liquid diet DVT -full dose lovenox until day of surgery Visit type - Emergency Visit Emergency Visit: Yes ED Registration Date: 11/16/16 Care time: The patient presented to the Emergency Department on the above date and was hospitalized for further evaluation of their emergent condition. - New Patient This patient is new to me today: Yes Date on this admission: 11/17/16 - Critical Care Critical Care patient: No
[2016-11-17] MEDS ORDERED: ENOXAPARIN NA (PORCINE) 80 MG/0.8 ML DISP.SYRIN SQ SCH (14:30)
[2016-11-17] MEDS ORDERED: PNEUMOC 13-VAL CONJ-DIP CRM/PF 0.5 ML DISP.SYRIN IM ONE (16:01)
[2016-11-17] MEDS ORDERED: ATENOLOL 25 MG TABLET (FP) PO SCH (22:00)
[2016-11-18] MEDS: LEVOTHYROXINE NA 100 MCG TABLET (FP) PO SCH (06:35)
[2016-11-18] MEDS: LACTATED RINGERS SOLUTION 1,000 ML IV SCH ×2 (07:24→13:30)
--- NOTE | 2016-11-18 08:12 | PN ---
<GabbyNegar avelar - Last Filed: 11/18/16 13:54> Physical Exam: SUBJECTIVE: Patient seen and examined t at bed side this am. patient reports abd pain has decreased, has an appetite, and tolerated clear liquids yesterday. denies cp, sob, n/v/d, fevers, chills. no other night events. OR today. OBJECTIVE: Vital Signs Period Temp Pulse Resp BP Sys/Wyman Pulse Ox Last 24 Hr 97.8 F-98.9 F 60-77 18-18 102-134/58-80 98-99 GENERAL: The patient is awake, alert, and fully oriented, in no acute distress, sitting comfortably HEAD: Normal with no signs of trauma. EYES: PERRL, extraocular movements intact, sclera anicteric, conjunctiva clear. No ptosis. ENT: Ears normal, nares patent, oropharynx clear without exudates, moist mucous membranes. NECK: Trachea midline, full range of motion, supple. LUNGS: Breath sounds equal, clear to auscultation bilaterally, no wheezes, no crackles, no accessory muscle use. HEART: Regular rate and rhythm, S1, S2 without murmur, rub or gallop. ABDOMEN: Soft, tender epigastric area, nondistended, normoactive bowel sounds, no guarding, no rebound, no hepatosplenomegaly, no masses. EXTREMITIES: 2+ pulses, warm, well-perfused, no edema. NEUROLOGICAL: Cranial nerves II through XII grossly intact. Normal speech, gait not observed. PSYCH: Normal mood, normal affect. SKIN: Warm, dry, normal turgor, no rashes or lesions noted Laboratory Results - last 24 hr 11/17/16 06:00 Phosphorus 2.8 Total Bilirubin 0.6 D Alkaline Phosphatase 106 D Lipase 2205 H Active Medications Generic Name Dose Route Start Last Admin Trade Name Freq PRN Reason Stop Dose Admin Atenolol 25 mg 11/17/16 22:00 11/17/16 21:39 Tenormin - PO 25 mg HS JONNY Administration Enoxaparin Sodium 80 mg 11/17/16 14:30 11/17/16 16:37 Lovenox - SQ 80 mg BID JONNY Administration Folic Acid 2 mg 11/17/16 10:00 11/17/16 11:06 Folic Acid - PO 2 mg DAILY JONNY Administration Hydromorphone HCl 1 mg 11/16/16 23:29 Dilaudid Injection - IVPUSH Q4H PRN PAIN Lactated Ringer's 1,000 mls @ 125 mls/hr 11/16/16 23:30 11/18/16 07:24 Lactated Ringers Solution IV 125 mls/hr ASDIR JONNY Administration Levothyroxine Sodium 100 mcg 11/17/16 07:00 11/18/16 06:35 Synthroid - PO 100 mcg AM JONNY Administration Pantoprazole Sodium 20 mg 11/17/16 10:00 11/17/16 11:06 Protonix - PO 20 mg DAILY JONNY Administration Pneumococcal 13-Valent Conj Vacc 0.5 ml 11/17/16 16:01 Prevnar 13 Syringe - IM 11/17/16 16:02 .ONCE ONE can stop IVF if tolerating clears. ASSESSMENT/PLAN: This is a 56 yo F with PMH of lupus and RA on methotrexate, HTN, hypothyroidism and 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, a/c found to have gall stone pancreatitits #Acute pancreatitis in setting of cholelithiasis:-gall bladder has numerous stones and pt has had episodes in the past-likely passed stone-LFT's and lipase trending down -OR today -Admission [place] =1; LDH pending, Max Admission [place] =2 -mild pancreatitis, mortality 0-1% -Dilaudid pain management -IV Hydration -check CBC #Hypothyroid -Synthroid #HTN -atenolol #recurrent DVT - full dose lovenox can start is tomorrow -can go home on lovenox and bridge to coumadin as outpt. -check INR tomorrow. #lupus -weekly methotrexate #RA -weekly methotrexate #Macrocytic anemia -folic acid FEN d/c fluids Lytes stable DVT GI PPX: SCD's, hold a/c p/d invasive procedures today , PPI NPO before the surgery. Visit type - Emergency Visit Emergency Visit: Yes ED Registration Date: 11/16/16 Care time: The patient presented to the Emergency Department on the above date and was hospitalized for further evaluation of their emergent condition. - New Patient This patient is new to me today: No - Critical Care Critical Care patient: No <Yuniel Mitchell - Last Filed: 11/18/16 15:11> Physical Exam: ATTENDING PHYSICIAN STATEMENT I saw and evaluated the patient. I reviewed the resident's note and discussed the case with the resident. I agree with the resident's findings and plan as documented. SUBJECTIVE: seen and evaluated at the bedside OBJECTIVE: resting comfortably in no distress ASSESSMENT AND PLAN: 56 yo F with PMH of lupus and RA on methotrexate, HTN, hypothyroidism and 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 admitted for gall stone pancreatitits gall stone pancreatitits -LFT's and lipase trending down -likely passed stone -gall bladder has numerous stones and pt has had episodes in the past -s/p lap sukhi -start clear liquid diet DVT -full dose anticoagulation day after surgery
[2016-11-18 08:29] LABS: BASOPHIL 0.5 % (0-2.0); EOSINOPHIL 2.6 % (0-4.5); MCH 32.7 pg (25.7-33.7); MCHC 33.9 g/dl (32.0-36.0); MEAN CELL VOLUME 96.4 fl (80-96); MEAN PLT VOLUME 8.9 fl (7.5-11.1); NEUTROPHILS 68.6 % (42.8-82.8); PLATELET COUNT 149 K/MM3 (134-434); RDW 14.1 % (11.6-15.6); WHITE BLOOD COUNT 5.2 K/mm3 (4.0-10.0)
[2016-11-18 08:54] LABS: ALBUMIN 2.9 g/dl (3.4-5.0); ANION GAP 11 (8-16); BILIRUBIN,TOTAL 0.8 mg/dL (0.2-1.0); CALCIUM 8.1 mg/dL (8.5-10.1); CO2 24 mmol/L (21-32); CREATININE 0.7 mg/dL (0.55-1.02); GLUCOSE,RANDOM 71 mg/dL (74-106); SGOT/AST 33 U/L (15-37); SGPT/ALT 64 U/L (12-78); TOT PROT 5.7 g/dl (6.4-8.2)
[2016-11-18 08:55] LABS: ALK PHOS 102 U/L (45-117)
[2016-11-18] MEDS: FOLIC ACID 1 MG TABLET (FP) PO SCH (10:09)
[2016-11-18] MEDS: PANTOPRAZOLE 20 MG TABLET (FP) PO SCH (10:09)
[2016-11-18] MEDS ORDERED: BUPIVACAINE HCL/PF 0.5% (5MG/ML) 10 ML VIAL ONE (10:50)
[2016-11-18] MEDS ORDERED: LIDOCAINE HCL/PF 2% SDV 5ML VIAL ONE (11:37)
[2016-11-18] MEDS ORDERED: CLINDAMYCIN PHOSPHATE 600 MG/4 ML VIAL ONE (11:37)
[2016-11-18] MEDS ORDERED: ROCURONIUM BROMIDE 50 MG/5 ML VIAL ONE (11:37)
[2016-11-18] MEDS ORDERED: PROPOFOL 20 ML ONE (11:37)
[2016-11-18] MEDS ORDERED: MIDAZOLAM HCL 2 MG/2 ML SINGLE DOSE VIAL ONE (11:37)
[2016-11-18] MEDS ORDERED: CLINDAMYCIN PHOSPHATE 600 MG/4 ML VIAL IVPB ONE (11:49)
[2016-11-18] MEDS ORDERED: DEXAMETHASONE SOD PHOSPHATE 4 MG/1 ML VIAL ONE (12:00)
[2016-11-18] MEDS ORDERED: BUPIVACAINE HCL/PF 0.5% (5MG/ML) 10 ML VIAL IJ ONE ×2 (12:10)
[2016-11-18] MEDS ORDERED: GLYCOPYRROLATE 0.2 MG/1 ML VIAL ONE (12:33)
[2016-11-18] MEDS ORDERED: NEOSTIGMINE METHYLSULFATE 0.5 MG/ML - 10 ML MDV ONE (12:33)
--- NOTE | 2016-11-18 12:46 | PN ---
Progress Note (short form) - Note Progress Note: GI NOte: I came to do a GI consultation but the patient is in the operating room. Dr Nieto will consult later.
[2016-11-18] MEDS ORDERED: OXYCODONE/APAP 5/325MG COMBO TABLET PO PRN ×2 (12:53)
--- NOTE | 2016-11-18 12:55 | OP ---
Operative Note - Note: Operative Date: 11/18/16 Pre-Operative Diagnosis: gallstone pancreatitis Operation: laparoscopic cholecystectomy Findings: gallstones Post-Operative Diagnosis: Same as Pre-op Surgeon: Wan Gross Digital Strategist Senior Manager: Amalia Moore Anesthesia: General Specimens Removed: gallbladder Estimated Blood Loss (mls): 5 Operative Report Dictated: Yes
--- NOTE | 2016-11-18 12:56 | CONSULT ---
Consult - text type - Consultation Consultation Note: no full dose anticoagulation today. earliest full dose lovenox can start is tomorrow. check CBC and INR tomorrow. hopefully can go home on lovenox and bridge to coumadin as outpt. can have regular diet tomorrow AM. can stop IVF if tolerating clears. can have regular diet tonight if patient really hungry.
--- NOTE | 2016-11-18 12:58 | SURG ---
Surgery Scarfer Operator Note Scarfer Operator: Amalia Moore PA-C Date of Service: 11/18/16 Diagnosis: gallstone pancreatitis Procedure: laparoscopic cholecystectomy I was present for the entirety of the operative procedure. For further detail, please refer to operative report. Visit type - Case Type Case Type: ED Admission - New patient This patient is new to me today: Yes Date on this admission: 11/18/16
[2016-11-18] MEDS ORDERED: ONDANSETRON 4 MG/2 ML VIAL IVPUSH PRN (13:00)
[2016-11-18] MEDS ORDERED: LACTATED RINGERS SOLUTION 1,000 ML IV SCH (13:00)
[2016-11-18] MEDS ORDERED: IBUPROFEN 800 MG/8 ML IJ IVPB ONE (13:19)
[2016-11-18] MEDS ORDERED: ACETAMINOPHEN 325 MG TABLET (FP) PO PRN ×2 (13:23→13:25)
[2016-11-18] MEDS ORDERED: oxyCODONE HCL 5 MG TABLET PO PRN ×2 (13:23→13:25)
[2016-11-18] MEDS: IBUPROFEN 800 MG/8 ML IJ IVPB PRN ×2 (13:29→13:40)
--- NOTE | 2016-11-18 18:00 | OP ---
DATE OF OPERATION: 11/18/2016 PREOPERATIVE DIAGNOSIS: Gallstone pancreatitis. POSTOPERATIVE DIAGNOSIS: Gallstone pancreatitis. SURGEON: Aster Gross MD CASE MANAGEMENT SOCIAL WORKER: JACQUE Mukherjee PROCEDURE: Laparoscopic cholecystectomy. ANESTHESIA: General endotracheal anesthesia. ESTIMATED BLOOD LOSS: Minimal. SPECIMEN: A gallbladder. OPERATIVE INDICATIONS: The patient had a couple of days of epigastric pain, was found to have a markedly elevated lipase and a CAT scan consistent with cholecystitis. An ultrasound showed gallstones. She had no findings of cholecystitis on the ultrasound and she had no history of alcohol use. Once her epigastric pain markedly improved and her lipase normalized, the decision was made to take her to the operating room on November 18. Her INR was 1.9, however, this was 2 days ago and the bleeding risk was felt to be low and safe to proceed. OPERATIVE DETAIL: The patient was brought to the operating room after confirming name, date of , medical record number. [facility]. She received appropriate perioperative antibiotics. She was then induced and intubated by the anesthesiologist. She was then prepped and draped in the usual sterile fashion. A time-out was then performed. A 1-inch supraumbilical incision was made and I bluntly dissected down to the fascia. I scored the fascia with electrocautery and then grabbed the abdominal wall with Darrian clamps. I then continued to go through the fascia with electrocautery and then I grabbed the posterior sheath with a Ofe clamp. I then used a Metzenbaum scissors to cut through the posterior sheath and then I used a Ofe clamp to bluntly violate the peritoneum. At this point I then placed my finger inside the abdomen, performed a finger sweep and ensured no adhesions, and then placed a 10-mm balloon Deny type trocar inside the abdomen and insufflated the abdomen to a pressure of 15 mmHg. I then injected approximately 10 mL of local for the planned three 5-mm incisions. Two were in the right nickie-abdomen and 1 was in the subxiphoid space. This was done with transillumination to avoid injury to the abdominal wall blood vessels. The patient was then placed in reverse Trendelenburg position with some right side up and the gallbladder was then retracted towards the right shoulder, and then using a combination of hook electrocautery and blunt dissection and suction dissection, I was able to dissect out the cystic duct and artery to confirm if that there were no structures returning to the liver bed. Once these structures were isolated and cleaned up, I then placed 3 metal clips, which were 5 mm each on the cystic duct. I cut, leaving 2 clips on the patient side and then I did the same for the cystic artery. I then used hook electrocautery to take the gallbladder off of the liver bed. Then this was placed in a 10-mm specimen retrieval bag and sent off the field for permanent examination. I then irrigated and aspirated out any fluid, ensured hemostasis numerous times and found that there was perfect hemostasis at the conclusion of the operation. At this point I then desufflated the abdomen, removed the ports, and then closed the supraumbilical fascia with a [id number] 0 Vicryl suture. I then irrigated and aspirated the wounds, ensured for hemostasis in the subcutaneous tissues, and then reapproximated the subcutaneous tissues with 4-0 Monocryl in a subcutaneous fashion. Dermabond was then applied. All counts were correct. ASTER GROSS M.D. JUSTINO/[id number]
--- NOTE | 2016-11-18 20:32 | CONSULT ---
Consult Consult Specialty:: GI Referred by:: Hospitalists Reason for Consultation:: abdominal pain - History of Present Illness Chief Complaint: I was having abdominal pain this weekend History of Present Illness: 56F admitted through [facility]. Found to have suspected gallstone pancreatitis. She had an US performed that revealed a GB filled with stones and no evidence of biliary ductal dilatation. Liver chemistreis improved and she was taken for laparoscopic cholecystectomy today. She describes having had similar episodes in the past. - History Source History Provided By: Patient, Family Member Limitations to Obtaining History: No Limitations - Past Medical History Cardio/Vascular: Yes: HTN ...LMP: 05/14/12 ...: No Heme/Onc: Yes: Other (Right Leg DVT) Rheumatology: Yes: Lupus, Rheumatoid Arthritis Endocrine: Yes: Hypothyroidism - Past Surgical History Additional Surgical History: Tympanoplasty (right ear) - Alcohol/Substance Use Hx Alcohol Use: No - Smoking History Smoking history: Former smoker Have you smoked in the past 12 months: No Aproximately how many cigarettes per day: 0 If you are a former smoker, when did you quit?: 15YRS AGO - Social History Usual Living Arrangement: With Spouse ADL: Independent 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 Place of : Other ([employer]) History of Recent Travel: No Home Medications - Allergies Allergies/Adverse Reactions: Allergies Allergy/AdvReac Type Severity Reaction Status Date / Time Penicillins Allergy Mild RASH, Verified 11/16/16 13:19 MOUTH SWELLING sulfamethoxazole Allergy Verified 11/16/16 13:19 [From Bactrim] trimethoprim [From Bactrim] Allergy Verified 11/16/16 13:19 - Home Medications Home Medications: Ambulatory Orders Levothyroxine [Synthroid -] 100 mcg PO DAILY #0 02/09/14 Warfarin Na [Coumadin -] 4 mg PO MOTUWETHFR 04/25/16 Atenolol [Tenormin -] 25 mg PO HS 11/16/16 Docusate Sodium [Colace -] 100 mg PO DAILY 11/16/16 Folic Acid - 2 mg PO DAILY 11/16/16 Methotrexate Sodium [Methotrexate] 17.5 mg PO WEEKLY 11/16/16 Omeprazole 40 mg PO DAILY 11/16/16 Warfarin Na [Coumadin] 5 mg PO SUSA 11/16/16 Family Disease History - Family Disease History Family Disease History: Other: Father (: 80's: colon surgery comps), Mother (Alive: 89: DM II) Other Family History: 8 siblings 1 sister with RA, 2 healthy children, 1 adopted daughter Review of Systems - Review of Systems Constitutional: reports: Loss of Appetite Cardiovascular: denies: Chest Pain Respiratory: denies: SOB Gastrointestinal: reports: Abdominal Pain, Nausea, Vomiting Physical Exam-GI Vital Signs: Vital Signs Temperature 97.9 F 11/18/16 17:00 Pulse Rate 64 11/18/16 17:00 Respiratory Rate 20 11/18/16 17:00 Blood Pressure 125/72 11/18/16 17:00 O2 Sat by Pulse Oximetry (%) 98 11/18/16 15:51 Constitutional: Yes: Calm Eyes: No: Sclera Icterus Cardiovascular: Yes: Regular Rate and Rhythm Respiratory: Yes: CTA Bilaterally Gastrointestinal Inspection: Yes: Scars (glued trochar wounds). No: Distention ...Auscultate: Yes: Hypoactive Bowel Sounds ...Palpate: Yes: Tenderness (at trochar sites) ...Percussion: No: Tympanitic Edema: No Neurological: Yes: Alert, Oriented Labs: CBC, BMP 11/18/16 07:00 11/18/16 07:00 INR, PTT INR 1.90 (0.82-1.09) H 11/16/16 14:44 Imaging - Results Cat Scan: Report Reviewed Assessment/Plan Gallstone Pancreatitis: Taken to OR already Monitor LFTs. Discussed with family and patient that if LFT pattern becomes suggestive of a retained stone in the CBD, ERCP will need to be performed for diagnostic/therapeutic purposes. We discussed potential risks of the procedure like but not limited to bleeding, perforation requiring surgery to repair, infection, sedation medication effects and pancreatitis, all of which could be potentially life threatening. They have agreed to the procedure if it was felt to be clinically indicated. Monitor LFTs
[2016-11-18] MEDS ORDERED: ATENOLOL 25 MG TABLET (FP) PO SCH (22:00)
[2016-11-19] MEDS ORDERED: LEVOTHYROXINE NA 100 MCG TABLET (FP) PO SCH (07:00)
[2016-11-19 08:20] LABS: BASOPHIL 1.3 % (0-2.0); EOSINOPHIL 1.2 % (0-4.5); MCH 32.8 pg (25.7-33.7); MCHC 33.7 g/dl (32.0-36.0); MEAN CELL VOLUME 97.4 fl (80-96); MEAN PLT VOLUME 9.6 fl (7.5-11.1); NEUTROPHILS 72.7 % (42.8-82.8); PLATELET COUNT 163 K/MM3 (134-434); RDW 13.8 % (11.6-15.6); WHITE BLOOD COUNT 7.3 K/mm3 (4.0-10.0)
[2016-11-19 08:26] LABS: INR 1.44 (0.82-1.09)
[2016-11-19 08:52] LABS: ALBUMIN 3.2 g/dl (3.4-5.0); BILIRUBIN,DIRECT 0.2 mg/dL (0.0-0.2)
[2016-11-19 08:55] LABS: BILIRUBIN,TOTAL 0.8 mg/dL (0.2-1.0); TOT PROT 6.4 g/dl (6.4-8.2)
[2016-11-19 09:05] LABS: ALBUMIN 3.2 g/dl (3.4-5.0); ALK PHOS 108 U/L (45-117); ANION GAP 10 (8-16); BILIRUBIN,TOTAL 0.8 mg/dL (0.2-1.0); CALCIUM 8.4 mg/dL (8.5-10.1); CO2 25 mmol/L (21-32); CREATININE 0.7 mg/dL (0.55-1.02); GLUCOSE,RANDOM 75 mg/dL (74-106); SGOT/AST 31 U/L (15-37); SGPT/ALT 56 U/L (12-78); TOT PROT 6.5 g/dl (6.4-8.2)
--- NOTE | 2016-11-19 09:13 | PN ---
Progress Note (short form) - Note Progress Note: Patient seen and examined. Patient has some pain with movement, but is feeling well without complaints. She tolerated a full liquid diet without nausea and vomiting. She has been ambulating and urinating without issue. She denies flatus. She denies F/C/N/V, CP, sob, ROSE, weakness, LE pain. Last Vital Signs Temp Pulse Resp BP Pulse Ox 97.7 F 50 L 20 131/75 98 11/19/16 06:00 11/19/16 06:00 11/19/16 06:00 11/19/16 06:00 11/18/16 21:00 H&H 13.6/40.5 INR 1.44 Total Bilirubin 0.8 mg/dL (0.2-1.0) 11/19/16 06:30 Direct Bilirubin 0.2 mg/dL (0.0-0.2) 11/19/16 06:30 AST 31 U/L (15-37) 11/19/16 06:30 ALT 56 U/L (12-78) 11/19/16 06:30 Alkaline Phosphatase 108 U/L (45-117) 11/19/16 06:30 PE: Gen: NAD, resting comfortably, pleasant and cooperative Abd: Soft, nondistended, port site incisions clean, dry, intact, mild tenderness with palp LE: calves soft, nontender A/P POD#1 s/p laparoscopic cholecystectomy, gallstone pancreatitis Continue pain control with PO pain medication Advance to regular diet DC IV fluids Ambulation May resume Lovenox now, may restart Coumadin tonight
[2016-11-19] MEDS ORDERED: FOLIC ACID 1 MG TABLET (FP) PO SCH (10:00)
[2016-11-19] MEDS ORDERED: PANTOPRAZOLE 20 MG TABLET (FP) PO SCH (10:00)
[2016-11-19] MEDS ORDERED: ENOXAPARIN NA (PORCINE) 80 MG/0.8 ML DISP.SYRIN SQ SCH (12:00)
[2016-11-19] MEDS: LACTATED RINGERS SOLUTION 1,000 ML IV SCH (12:26)
[2016-11-19 13:06] VITALS: PULSE 58; TEMP 98
--- NOTE | 2016-11-19 13:20 | PN ---
Physical Exam: SUBJECTIVE: Patient seen and examined mild abdominal tenderness located periumbilical surrounding incision site. tolerated diet no BM or flatus since yesterday. denies CP, SOB,fever, chills, N/V/C/D OBJECTIVE: Vital Signs Period Temp Pulse Resp BP Sys/Wyman Pulse Ox Last 24 Hr 97.7 F-98.6 F 50-72 15-20 100-145/61-75 97-99 GENERAL: The patient is awake, alert, and fully oriented, in no acute distress, sitting comfortably HEAD: Normal with no signs of trauma. EYES: PERRL, extraocular movements intact, sclera anicteric, conjunctiva clear. No ptosis. ENT: Ears normal, nares patent, oropharynx clear without exudates, moist mucous membranes. NECK: Trachea midline, full range of motion, supple. LUNGS: Breath sounds equal, clear to auscultation bilaterally, no wheezes, no crackles, no accessory muscle use. HEART: Regular rate and rhythm, S1, S2 without murmur, rub or gallop. ABDOMEN: Soft, tender epigastric area, nondistended, normoactive bowel sounds, no guarding, no rebound, no hepatosplenomegaly, no masses. EXTREMITIES: 2+ pulses, warm, well-perfused, no edema. NEUROLOGICAL: Normal speech, gait not observed. PSYCH: Normal mood, normal affect. SKIN: Warm, dry, normal turgor, no rashes or lesions noted Laboratory Results - last 24 hr 11/19/16 11/19/16 11/19/16 06:30 06:30 06:30 WBC Cancelled Corrected WBC (auto) Cancelled RBC Cancelled Hgb Cancelled Hct Cancelled MCV Cancelled MCHC Cancelled RDW Cancelled Plt Count Cancelled MPV Cancelled Neutrophils % Lymphocytes % Monocytes % Eosinophils % Basophils % Differential Comment Cancelled Smudge Cells Platelet Estimate Cancelled Platelet Comment Cancelled RBC Morphology Cancelled INR 1.44 H Sodium 142 Potassium 4.6 Chloride 107 Carbon Dioxide 25 Anion Gap 10 BUN 9 Creatinine 0.7 Creat Clearance w eGFR > 60 Random Glucose 75 Calcium 8.4 L Total Bilirubin 0.8 Direct Bilirubin AST 31 ALT 56 Alkaline Phosphatase 108 Total Protein 6.5 Albumin 3.2 L 11/19/16 11/19/16 06:30 06:30 WBC 7.3 D Corrected WBC (auto) Mallet And Die Cutter RBC 4.15 Hgb 13.6 Hct 40.5 MCV 97.4 H MCHC 33.7 RDW 13.8 Plt Count 163 MPV 9.6 Neutrophils % 72.7 Lymphocytes % 20.5 Monocytes % 4.3 Eosinophils % 1.2 Basophils % 1.3 Differential Comment Mallet And Die Cutter Smudge Cells Mallet And Die Cutter Platelet Estimate Mallet And Die Cutter Platelet Comment Mallet And Die Cutter RBC Morphology Mallet And Die Cutter INR Sodium Potassium Chloride Carbon Dioxide Anion Gap BUN Creatinine Creat Clearance w eGFR Random Glucose Calcium Total Bilirubin 0.8 Direct Bilirubin 0.2 AST 31 ALT 58 Alkaline Phosphatase 104 Total Protein 6.4 Albumin 3.2 L Active Medications Generic Name Dose Route Start Last Admin Trade Name Freq PRN Reason Stop Dose Admin Acetaminophen 325 mg 11/18/16 13:23 Tylenol - PO 11/21/16 13:22 Q4H PRN PAIN LEVEL 1-5 Acetaminophen 650 mg 11/18/16 13:25 11/18/16 23:19 Tylenol - PO 11/21/16 13:24 650 mg Q4H PRN Administration PAIN LEVEL 6-10 Atenolol 25 mg 11/18/16 22:00 11/18/16 21:20 Tenormin - PO 25 mg HS JONNY Administration Enoxaparin Sodium 80 mg 11/19/16 12:00 11/19/16 12:24 Lovenox - SQ 80 mg BID JONNY Administration Fentanyl 25 mcg 11/18/16 13:00 11/18/16 13:55 Sublimaze Injection - IVPUSH 11/21/16 13:01 25 mcg [id number] PRN Administration PAIN Folic Acid 2 mg 11/19/16 10:00 11/19/16 09:56 Folic Acid - PO 2 mg DAILY JONNY Administration Lactated Ringer's 1,000 mls @ 125 mls/hr 11/18/16 13:10 11/19/16 12:26 Lactated Ringers Solution IV 125 mls/hr ASDIR JONNY Administration Ibuprofen 800 mg 11/18/16 13:00 11/18/16 13:40 Caldolor Injection - IVPB 800 mg Q6H PRN Administration PAIN Levothyroxine Sodium 100 mcg 11/19/16 07:00 11/19/16 06:08 Synthroid - PO 100 mcg AM JONNY Administration Oxycodone HCl 5 mg 11/18/16 13:23 Roxicodone - PO Q4H PRN PAIN LEVEL 1-5 Oxycodone HCl 10 mg 11/18/16 13:25 11/18/16 23:20 Roxicodone - PO 10 mg Q4H PRN Administration PAIN LEVEL 6-10 Pantoprazole Sodium 20 mg 11/19/16 10:00 11/19/16 09:56 Protonix - PO 20 mg DAILY JONNY Administration ASSESSMENT/PLAN: his is a 56 yo F with PMH of lupus and RA on methotrexate, HTN, hypothyroidism and 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, a/c found to have gall stone pancreatitits #Acute pancreatitis in setting of cholelithiasis:-gall bladder has numerous stones and pt has had episodes in the past-likely passed stone-LFT's and lipase trending down -s/p laprascopic cholecystectomy POD #1 -Admission [facility] =1; [facility] pending, Max Admission Michelle's =2 -mild pancreatitis, mortality 0-1% -Dilaudid pain management -IV Hydration -check CBC #Hypothyroid -Synthroid #HTN: controlled -atenolol #recurrent DVT: will start anticogulation #lupus -weekly methotrexate #RA -weekly methotrexate #Macrocytic anemia -folic acid FEN d/c fluids Lytes stable DVT GI PPX: SCD's, hold a/c p/d invasive procedures today , PPI NPO before the surgery. Visit type - Emergency Visit Emergency Visit: Yes ED Registration Date: 11/16/16 Care time: The patient presented to the Emergency Department on the above date and was hospitalized for further evaluation of their emergent condition. - New Patient This patient is new to me today: No - Critical Care Critical Care patient: No
--- NOTE | 2016-11-19 13:56 | PN ---
Teaching Attending Note Name of Resident: Negar Pierre ATTENDING PHYSICIAN STATEMENT I saw and evaluated the patient. I reviewed the resident's note and discussed the case with the resident. I agree with the resident's findings and plan as documented. SUBJECTIVE:mild abdominal tenderness located periumbilical surrounding incision site. tolerated liquid breakfast. no BM or flatus since . denies CP, SOB,fever, chills, N/V/C/D OBJECTIVE: Last Vital Signs Temp Pulse Resp BP Pulse Ox 98.0 F 58 L 17 131/75 98 11/19/16 13:04 11/19/16 13:04 11/19/16 13:04 11/19/16 06:00 11/18/16 21:00 General NAD Abdomen surgical incision clean/dry/intact. soft, mildly distended. normoactive BS. negative gallegos sign. obese ASSESSMENT AND PLAN: 56yo F with PMH HTN, recurrent DVT, SLE and RA presented to the ER and was admitted for further evaluation of their emergent condition 1. Acute pancreatitis due to gallstones- s/p laprascopic cholecystectomy POD # 2. tolerated liquid diet. will advance to regular diet. transaminitis trended down to normal. low suspicion for retained stone. will need to f/u with GI and surgery 2. recurrent DVT on couamdin-held for pending surgery. ok from surgery to start lovenox/coumadin bridge today. will start. explained to pt will need INR check on Friday for further adjustment and decision when lovenox can be stopped. 3. HTN- controlled. cont atenolol 4. hypothyroid- cont LT4 5. SLE/RA- on MTX, folate 6. d/c home today if tolerates regular diet. explained need for f/u INR level and need for lovenox self injection. teaching by RN. explained to pt who verbalized understanding and agrees to plan
--- NOTE | 2016-11-19 13:58 | PATH ---
Surgical Pathology Report Patient Name: DARIUSZ WINN [facility]. Rec. #: [id number] /Age/Gender: 1960 (Age: 56) / F Account: [id number] Location: [address] [place] [address] Taken: 11/18/2016 Received: 11/18/2016 Reported: 11/19/2016 Physicians: Wan Gross MD Specimen(s) Received GALLBLADDER Clinical History Pancreatitis, cholelithiasis Final Diagnosis GALLBLADDER, CHOLECYSTECTOMY: CHRONIC CHOLECYSTITIS AND CHOLELITHIASIS. Electronically Signed Angel Wood M.D. Gross Description Received in formalin, labeled "gallbladder" is a 7.5 x 3.4 x 3.2 cm gallbladder with a 0.2 cm in length portion of cystic duct attached. The outer surface is abbasi-pink and varies from smooth to shaggy. The lumen contains green, tenacious bile as well as multiple brown irregular choleliths ranging from 0.2-1.2 cm in greatest dimension. The mucosa is abbasi and velvety. The wall of the gallbladder averages 0.1 c. in thickness. Bulb Tester sections are submitted in one cassette. /11/18/201611/18/2016
--- NOTE | 2016-11-19 14:42 | PN ---
GI Progress Note Subjective: Abdominal pain improved Tolerating PO - Objective Vital Signs: Vital Signs Temperature 98.0 F 11/19/16 13:04 Pulse Rate 58 L 11/19/16 13:04 Respiratory Rate 17 11/19/16 13:04 Blood Pressure 131/75 11/19/16 06:00 O2 Sat by Pulse Oximetry (%) 98 11/18/16 21:00 Constitutional: Calm Eyes: No: Sclera Icterus Cardiovascular: Yes: Regular Rate and Rhythm Respiratory: Yes: CTA Bilaterally Gastrointestinal Inspection: Yes: Scars (glued trochar scars with some tenderness at the sites) ...Auscultate: Yes: Normoactive Bowel Sounds ...Palpate: Yes: Tenderness Edema: No Labs: CBC, BMP 11/19/16 06:30 11/19/16 06:30 INR, PTT INR 1.44 (0.82-1.09) H 11/19/16 06:30 Hepatic Panel Total Bilirubin 0.8 mg/dL (0.2-1.0) 11/19/16 06:30 Direct Bilirubin 0.2 mg/dL (0.0-0.2) 11/19/16 06:30 AST 31 U/L (15-37) 11/19/16 06:30 ALT 56 U/L (12-78) 11/19/16 06:30 Alkaline Phosphatase 108 U/L (45-117) 11/19/16 06:30 Albumin 3.2 g/dl (3.4-5.0) L 11/19/16 06:30 Problem List - Problems (1) Acute gallstone pancreatitis Assessment/Plan: S/P Lap Yanet LFTs remain normal, normal WBC's and abdominal pain seems to be focal to the trochar sites No ERCP planned at this time Post op care per surgery Can follow-up in office in 2 weeks Code(s): K85.1 - BILIARY ACUTE PANCREATITIS * DO NOT USE *
[2016-11-19 15:25] VITALS: BP 124/68
== END 2016-11-19 17:19 | disposition home or self-care (01) | DRG 419 ==
LOC: JER 13:14 → JERBED 23:29 → UNDOADMIN 11-17 00:14 → JERBED 11-17 00:14 → J6S 11-17 15:18
PROVIDERS: ADMIT Internal Medicine; ATTEND Internal Medicine
PROC: 0FT44ZZ Resection of Gallbladder, Percutaneous Endoscopic Approach (ICD-10-PCS; principal; 2016-11-18 11:00)
DX: K85.10 Biliary acute pancreatitis without necrosis or infection (principal); I10 Essential (primary) hypertension; E03.9 Hypothyroidism, unspecified; M32.9 Systemic lupus erythematosus, unspecified; Z86.718 Personal history of other venous thrombosis and embolism; Z79.01 Long term (current) use of anticoagulants; M06.9 Rheumatoid arthritis, unspecified; F41.9 Anxiety disorder, unspecified; D64.9 Anemia, unspecified; Z87.891 Personal history of nicotine dependence
CPT/HCPCS: 36415; 71010-TC; 74177-TC; 76705-TC; 80048; 80053; 80061; 80076; 80307; 81003; 81015; 82150; 83615; 83690; 83721; 83735; 84100; 85025; 85027; 85610; 86850; 86900; 86901; 88304-TC; 93005; 93010; 94760; 99285-25